=== PATIENT | male | born 1960 ===

== ENCOUNTER 2020-10-26 22:49 | Emergency (ER) | payer OTHER ==
[2020-10-26 23:05] VITALS: BP 122/86
[2020-10-26] MEDS ORDERED: ASPIRIN 325 MG TAB PO ONE (23:07)
--- NOTE | 2020-10-27 | XRay Report ---
CHEST 1 VIEW 2340 INDICATION / CLINICAL INFORMATION: Chest Pain COMPARISON: None available. FINDINGS: SUPPORT DEVICES: None HEART / MEDIASTINUM: No significant abnormality. LUNGS / PLEURA: Mild atelectasis or scarring is seen in the right base. No definite acute infiltrates are seen. No pneumothorax. ADDITIONAL FINDINGS: No significant additional findings. IMPRESSION: No significant acute abnormality Signer Name: Vance Plummer MD Signed: 10/26/2020 11:55 PM Workstation Name: [id number]
[2020-10-27 00:30] LABS: Basophils # (Auto) 0.1 K/mm3 (0.0-0.1); Basophils % (Auto) 0.9 % (0.0-1.8); Eosinophils # (Auto) 0.2 K/mm3 (0.0-0.4); Eosinophils % (Auto) 1.8 % (0.0-4.3); Hematocrit 32.2 % (35.5-45.6); Hemoglobin 10.2 gm/dl (11.8-15.2); Lymphocytes # (Auto) 1.7 K/mm3 (1.2-5.4); Lymphocytes % (Auto) 17.4 % (13.4-35.0); Mean Corpuscular HGB Conc 32 % (32-34); Mean Corpuscular Volume 76 fl (84-94); Monocytes # (Auto) 0.8 K/mm3 (0.0-0.8); Monocytes % (Auto) 8.7 % (0.0-7.3); Platelet Count 485 K/mm3 (140-440); Red Blood Count 4.25 M/mm3 (3.65-5.03); Red Cell Distribution Width 17.8 % (13.2-15.2)
[2020-10-27 00:36] LABS: BUN/Creatinine Ratio 10; Blood Urea Nitrogen 11 mg/dL (9-20); Calcium 9.3 mg/dL (8.4-10.2); Hemolysis Index 0
[2020-10-27 01:24] LABS: INR 1.09 (0.87-1.13)
[2020-10-27 01:25] LABS: Partial Thromboplastin Time 33.7 Sec. (24.2-36.6)
== END 2020-10-28 01:00 | disposition left against medical advice (07) ==
LOC: ED 22:49
DX: R06.02 Shortness of breath (principal); Z53.21 Procedure and treatment not carried out due to patient leaving prior to being seen by health care provider
CPT/HCPCS: 36415; 71045; 80048; 84484; 85025; 85610; 85730; 93005